=== PATIENT | female | born 1995 | race African-American/Black ===

== ENCOUNTER 2018-10-17 17:13 | Observation (INO) | payer OTHER ==
[~2018-10-17] VITALS: Ht 160 cm; Wt 72.6 kg
== END 2018-10-17 18:45 | disposition home or self-care (01) ==
LOC: EDBD 17:13 → 8 EST LDRP 17:13
PROVIDERS: ADMIT Specialist; ATTEND Specialist
DX: O26.893 Other specified pregnancy related conditions, third trimester (principal); R10.9 Unspecified abdominal pain; Z3A.40 40 weeks gestation of pregnancy
CPT/HCPCS: 76815; 76818; 99281; G0378

== ENCOUNTER 2018-10-26 19:00 | Inpatient (IN) | payer OTHER ==
[~2018-10-26] VITALS: Ht 160 cm; Wt 74.8 kg
[2018-10-26] MEDS: LACTATED RINGERS 1,000 ML IV SCH (20:34)
[2018-10-26] MEDS ORDERED: MISOPROSTOL 100MCG TABLET ONE (20:51)
[2018-10-26] MEDS: MISOPROSTOL 100MCG TABLET VG SCH (20:52)
[2018-10-26] MEDS ORDERED: AMPICILLIN 2,000 MG in SODIUM CHLORIDE 0.9% 100 ML IV SCH (21:00)
[2018-10-26 21:29] LABS: BASOPHILS % 0.5 % (0.0-2.0); EOSINOPHILS % 0.3 % (0.0-5.0); HEMATOCRIT. 27.4 % (36.0-48.0); HEMOGLOBIN. 9.1 g/dL (12.0-16.0); LYMPHOCYTES % 17.5 % (20.0-50.0); MEAN CORPUSCULAR HEMOGLOBIN 25.2 pg (28.0-32.0); MEAN CORPUSCULAR VOLUME 76.1 fL (81.0-99.0); MEAN PLATELET VOLUME 9.3 fl (7.4-10.4); MONOCYTES % 5.3 % (2.0-8.0); NEUTROPHILS % 76.4 % (40.0-76.0); PLATELET 211 x1000/uL (130-400); RED CELL DISTRIBUTION WIDTH 16.9 % (11.6-14.6)
[2018-10-26 21:35] LABS: INR 1.1; PARTIAL THROMBOPLASTIN TIME 25.2 sec (23.4-31.0); PROTHROMBIN TIME 10.9 sec (9.6-11.0)
[2018-10-26 22:15] LABS: HEPATITIS B SURFACE ANTIGEN NEGATIVE
[2018-10-27] MEDS: AMPICILLIN 1,000 MG in SODIUM CHLORIDE 0.9% 50 ML IV SCH ×5 (00:49→23:02)
[2018-10-27 01:19] LABS: *AMPHETAMINES SCREEN URINE NEGATIVE (NEGATIVE); *BARBITURATES SCREEN URINE NEGATIVE (NEGATIVE); *BENZODIAZEPINES SCREEN URINE NEGATIVE (NEGATIVE); *COCAINE SCREEN URINE NEGATIVE (NEGATIVE); METHADONE URINE SCREEN NEGATIVE (NEGATIVE); OPIATES URINE SCREEN NEGATIVE (NEGATIVE); PHENCYCLIDINE URINE SCREEN NEGATIVE (NEGATIVE)
[2018-10-27 01:20] LABS: CANNABINOID URINE SCREEN NEGATIVE (NEGATIVE)
[2018-10-27 01:52] LABS: CLARITY URINE CLEAR (CLEAR); COLOR URINE YELLOW (YELLOW); KETONES URINE NEGATIVE (NEGATIVE); NITRITE URINE NEGATIVE (NEGATIVE); OCCULT BLOOD URINE NEGATIVE (NEGATIVE); PROTEIN URINE NEGATIVE (NEGATIVE)
[2018-10-27 01:53] LABS: LEUKOCYTE ESTERASE URINE TRACE (NEGATIVE)
[2018-10-27] MEDS: LACTATED RINGERS 1,000 ML IV SCH ×2 (02:24→13:28)
[2018-10-27] MEDS ORDERED: BUTORPHANOL TARTRATE 2 MG/ML VIAL IV PRN (02:45)
[2018-10-27] MEDS: MISOPROSTOL 100MCG TABLET VG SCH (05:10)
[2018-10-27] MEDS ORDERED: ROPIVACAINE HCL/PF EPIDURAL 200 ML EPI SCH (05:45)
[2018-10-27] MEDS ORDERED: LIDOCAINE HCL 2%/EPINEPHRINE 1:100,000 20 ML VIAL INFIL ONE (12:40)
[2018-10-27] MEDS ORDERED: DEXT 5%/LR + PITOCIN 20UNITS/L 1,000 ML IV SCH (16:02)
[2018-10-27] MEDS ORDERED: LACTATED RINGERS 1,000 ML IV SCH (20:45)
[2018-10-28] MEDS ORDERED: ROPIVACAINE HCL 2MG/ML (0.2%) 200ML BOTTLE EPI STA (00:38)
[2018-10-28] MEDS ORDERED: ROPIVACAINE HCL/PF EPIDURAL 200 ML EPI SCH (01:00)
[2018-10-28] MEDS ORDERED: TERBUTALINE SULFATE 1MG/ML VIAL SUBCUT NR (01:45)
[2018-10-28] MEDS ORDERED: LIDOCAINE HCL 1% 20ML VIAL (Pyxis) INJ ONE (02:28)
[2018-10-28] MEDS ORDERED: MISOPROSTOL 200MCG TABLET ONE (02:29)
[2018-10-28] MEDS ORDERED: DEXT 5%/LR + PITOCIN 20UNITS/L 1,000 ML IV SCH (02:33)
[2018-10-28] MEDS ORDERED: RHO(D) IMMUNE GLOBULIN 300 MCG/SYR IM PRN (02:45)
[2018-10-28] MEDS ORDERED: IBUPROFEN 400MG TABLET PO PRN (02:45)
[2018-10-28] MEDS ORDERED: BENZOCAINE/LANOLIN/ALOE VERA SPRAY TOP PRN (02:45)
[2018-10-28] MEDS ORDERED: LIDOCAINE HCL 1% 20ML VIAL (Pyxis) INJ INFIL SCH (06:45)
[2018-10-28] MEDS ORDERED: MISOPROSTOL 200MCG TABLET VG SCH (07:00)
[2018-10-28] MEDS: IBUPROFEN 800MG TABLET PO PRN (07:15)
[2018-10-28 08:01] VITALS: BP 100/57
[2018-10-28 14:15] VITALS: BP 105/62
[2018-10-28 20:00] VITALS: BP_SYST 150; BP_SYST 91; BP_DIAS 58; BP_DIAS 85
[2018-10-29 04:00] VITALS: BP 92/59
[2018-10-29 06:14] LABS: BASOPHILS % 0.4 % (0.0-2.0); EOSINOPHILS % 0.6 % (0.0-5.0); HEMATOCRIT. 23.9 % (36.0-48.0); HEMOGLOBIN. 7.7 g/dL (12.0-16.0); LYMPHOCYTES % 17.2 % (20.0-50.0); MEAN CORPUSCULAR HEMOGLOBIN 24.5 pg (28.0-32.0); MEAN CORPUSCULAR VOLUME 75.8 fL (81.0-99.0); MEAN PLATELET VOLUME 9.4 fl (7.4-10.4); MONOCYTES % 5.3 % (2.0-8.0); NEUTROPHILS % 76.5 % (40.0-76.0); PLATELET 175 x1000/uL (130-400); RED BLOOD CELL COUNT 3.15 mill/uL (4.2-5.4); RED CELL DISTRIBUTION WIDTH 17.1 % (11.6-14.6)
[2018-10-29 08:00] VITALS: BP 109/68
[2018-10-29] MEDS ORDERED: MULTIVITAMINS,THER W-MINERALS TABLET PO SCH (08:00)
[2018-10-29] MEDS ORDERED: TETANUS, DIPHTHERIA, PERTUSSIS VAC/PF 0.5ML (>7YR OLD) IM ONE (08:00)
[2018-10-29] MEDS: IBUPROFEN 800MG TABLET PO PRN (14:24)
[2018-10-29] MEDS: FERROUS SULFATE 325MG TABLET PO SCH (14:24)
[2018-10-29 14:58] VITALS: BP 106/60
[2018-10-29 20:00] VITALS: BP 106/66
[2018-10-30 04:00] VITALS: BP 111/71
[2018-10-30 08:00] VITALS: BP 113/66
[2018-10-30] MEDS: FERROUS SULFATE 325MG TABLET PO SCH (14:16)
== END 2018-10-30 15:00 | disposition home or self-care (01) | DRG 560 ==
LOC: OBSVTOIN 19:00 → 8 EST LDRP 19:00 → 8EST 10-28 14:15
PROVIDERS: ADMIT Obstetrics & Gynecology; ATTEND Obstetrics & Gynecology
PROC: 10E0XZZ Delivery of Products of Conception, External Approach (ICD-10-PCS; principal; 2018-10-28)
PROC: 0HQ9XZZ Repair Perineum Skin, External Approach (ICD-10-PCS; 2018-10-28)
PROC: 3E0R3BZ Introduction of Anesthetic Agent into Spinal Canal, Percutaneous Approach (ICD-10-PCS; 2018-10-28)
PROC: 00HU33Z Insertion of Infusion Device into Spinal Canal, Percutaneous Approach (ICD-10-PCS; 2018-10-28)
DX: O48.0 Post-term pregnancy (principal); D64.9 Anemia, unspecified; O70.0 First degree perineal laceration during delivery; O99.03 Anemia complicating the puerperium; Z37.0 Single live birth; Z3A.41 41 weeks gestation of pregnancy
CPT/HCPCS: 36415; 80305; 86592; 86703; 86762; 86850; 86900; 87340; 90715; 99281; G0378; J0290; J0595; J2590; J2795; J3105; J3490; J7050; J7120; A4315

== ENCOUNTER 2023-12-17 21:40 | Emergency (ER) | payer OTHER ==
[~2023-12-17] VITALS: Ht 167.6 cm; Wt 60.0 kg
[2023-12-17 21:42] VITALS: TEMP 98.5; O2SAT 100
[2023-12-17 22:30] VITALS: BP 120/82; PULSE 121; RESP 16
[2023-12-17] MEDS: KETOROLAC 15MG/ML VIAL IM ONE (22:30)
== END 2023-12-18 01:00 | disposition home or self-care (01) ==
LOC: ER 21:40
DX: S06.0X0A Concussion without loss of consciousness, initial encounter (principal); S00.83XA Contusion of other part of head, initial encounter; W01.0XXA Fall on same level from slipping, tripping and stumbling without subsequent striking against object, initial encounter; Y93.89 Activity, other specified; Y92.89 Other specified places as the place of occurrence of the external cause; Y99.8 Other external cause status
CPT/HCPCS: 99283; 96372; J1885